=== PATIENT | female | born 1985 | race Caucasian/White ===

== ENCOUNTER 2017-08-07 17:55 | Emergency (ER) | payer MEDICAID ==
--- NOTE | 2017-08-07 18:41 | EDPHY ---
H & P Stated Complaint: sent from [facility] on M1 for paranoia and nickolas Source: Patient Exam Limitations: No limitations - Personal History Current Tetanus/Diphtheria Vaccine: Yes Tetanus Vaccine Date: 2015 - Medical/Surgical History Hx Asthma: No Hx Chronic Respiratory Disease: No Hx Diabetes: No Hx Cardiac Disease: No Hx Renal Disease: No Hx Cirrhosis: No Hx Alcoholism: No Hx HIV/AIDS: No Hx Splenectomy or Spleen Trauma: No Other PMH: anxiety, ADHD - Social History Smoking Status: Heavy smoker Time Seen by Provider: 08/07/17 18:39 HPI/ROS: CHIEF COMPLAINT: From [facility] on M1 psychiatric hold HISTORY OF PRESENT ILLNESS: The patient is referred to the emergency department from [facility] on an M1 psychiatric hold. The patient tells me she was there today to discuss marriage counseling. She reportedly reported symptoms of anxiety and depression surrounding problems with her . For reasons not entirely clear, the patient was placed on an M1 psychiatric hold. She denies making suicidal statements. She denies past medical history. She does have a remote history of attention deficit hyperactivity disorder and anxiety. The patient does report she uses marijuana occasionally. She reports she has a few alcoholic beverages a week. REVIEW OF SYSTEMS: A comprehensive 10 point review of systems is otherwise negative aside from elements mentioned in the history of present illness. (Patricio White) - Physical Exam Exam: General Appearance: Alert, no distress Eyes: Pupils equal and round no pallor or injection ENT, Mouth: Mucous membranes moist Respiratory: There are no retractions, lungs are clear to auscultation Cardiovascular: Regular rate and rhythm Gastrointestinal: Abdomen is soft and nontender, no masses, bowel sounds normal Neurological: A&O, normal motor function, normal sensory exam, normal cranial nerves Skin: Warm and dry, no rashes Musculoskeletal: Neck is supple nontender Extremities: symmetrical, full range of motion Psychiatric: Cooperative, denies symptoms of suicidal or homicidal ideation, endorses anxiety, appropriate thought content, thought process is linear, speech fluent and logical (Patricio White) Constitutional: Initial Vital Signs Temperature (C) 36.7 C 08/07/17 18:02 Heart Rate 75 08/07/17 18:02 Respiratory Rate 18 08/07/17 18:02 Blood Pressure 124/80 H 08/07/17 18:02 O2 Sat (%) 95 08/07/17 18:02 O2 Delivery Mode Room Air Allergies/Adverse Reactions: Penicillins Allergy (Verified 08/07/17 18:02) tramadol Allergy (Verified 07/21/15 08:36) Home Medications: Medication Instructions Recorded NK [No Known Home Meds] 08/07/17 Medical Decision Making ED Course/Re-evaluation: The patient presents to the ED on an M1 psychiatric hold for [facility]. The patient was medically cleared for psychiatric evaluation. She was seen by [facility] who would like to admit the patient for further inpatient psychiatric care. Disposition is currently pending. The patient did receive 1 mg of oral Ativan. She currently is tasneem for safety. The patient will be turned over to Dr. Benítez at shift change pending psychiatric placement. (Patricio White) 1250AM: This patient has been accepted at [facility] by Dr. Alvarado. Appropriate transfer paperwork has been filled out. EMTALA Filled out. (Trever Benítez) Differential Diagnosis: Differential diagnosis considered includes depression, suicidal ideation, psychosis, anxiety (Patricio White) - Data Points Laboratory Results: Laboratory Results 08/07/17 18:30 08/07/17 18:30 08/07/17 08/07/17 08/07/17 18:30 18:30 18:30 WBC RBC Hgb Hct MCV MCH MCHC RDW Plt Count MPV Neut % (Auto) Lymph % (Auto) Mcintosh % (Auto) Eos % (Auto) Baso % (Auto) Nucleat RBC Rel Count Absolute Neuts (auto) Absolute Lymphs (auto) Absolute Monos (auto) Absolute Eos (auto) Absolute Basos (auto) Absolute Nucleated RBC Immature Gran % Immature Gran # Sodium 139 mEq/L mEq/L (134-144) Potassium 3.8 mEq/L mEq/L (3.5-5.2) Chloride 105 mEq/L mEq/L (97-110) Carbon Dioxide 24 mEq/l mEq/l (22-31) Anion Gap 10 mEq/L mEq/L (8-16) BUN 11 mg/dL mg/dL (7-23) Creatinine 0.7 mg/dL mg/dL (0.6-1.0) Estimated GFR > 60 Glucose 83 mg/dL mg/dL (70-100) Calcium 10.1 mg/dL mg/dL (8.5-10.4) Beta HCG, Qual NEGATIVE Urine Opiates Screen NEGATIVE (NEGATIVE) Urine Barbiturates NEGATIVE (NEGATIVE) Ur Phencyclidine Scrn NEGATIVE (NEGATIVE) Ur Amphetamine Screen NEGATIVE (NEGATIVE) U Benzodiazepines Scrn NEGATIVE (NEGATIVE) Urine Cocaine Screen NEGATIVE (NEGATIVE) U Marijuana (THC) Screen NON-NEGATIVE H (NEGATIVE) Ethyl Alcohol < 10 mg/dL mg/dL (0-10) 08/07/17 18:30 WBC 10.99 10^3/uL H 10^3/uL (3.80-9.50) RBC 4.18 10^6/uL 10^6/uL (4.18-5.33) Hgb 13.4 g/dL g/dL (12.6-16.3) Hct 39.7 % % (38.0-47.0) MCV 95.0 fL fL (81.5-99.8) MCH 32.1 pg pg (27.9-34.1) MCHC 33.8 g/dL g/dL (32.4-36.7) RDW 13.6 % % (11.5-15.2) Plt Count 240 10^3/uL 10^3/uL (150-400) MPV 11.6 fL fL (8.7-11.7) Neut % (Auto) 54.7 % % (39.3-74.2) Lymph % (Auto) 34.8 % % (15.0-45.0) Mcintosh % (Auto) 5.6 % % (4.5-13.0) Eos % (Auto) 4.4 % % (0.6-7.6) Baso % (Auto) 0.4 % % (0.3-1.7) Nucleat RBC Rel Count 0.0 % % (0.0-0.2) Absolute Neuts (auto) 6.02 10^3/uL 10^3/uL (1.70-6.50) Absolute Lymphs (auto) 3.82 10^3/uL H 10^3/uL (1.00-3.00) Absolute Monos (auto) 0.62 10^3/uL 10^3/uL (0.30-0.80) Absolute Eos (auto) 0.48 10^3/uL H 10^3/uL (0.03-0.40) Absolute Basos (auto) 0.04 10^3/uL 10^3/uL (0.02-0.10) Absolute Nucleated RBC 0.00 10^3/uL 10^3/uL (0-0.01) Immature Gran % 0.1 % % (0.0-1.1) Immature Gran # 0.01 10^3/uL 10^3/uL (0.00-0.10) Sodium Potassium Chloride Carbon Dioxide Anion Gap BUN Creatinine Estimated GFR Glucose Calcium Beta HCG, Qual Urine Opiates Screen Urine Barbiturates Ur Phencyclidine Scrn Ur Amphetamine Screen U Benzodiazepines Scrn Urine Cocaine Screen U Marijuana (THC) Screen Ethyl Alcohol Medications Given: Discontinued Medications Lorazepam (Ativan) 1 mg PO EDNOW ONE Stop: 08/07/17 18:55 Last Admin: 08/07/17 19:15 Dose: 1 mg Nicotine (Nicoderm Cq) 21 mg TD EDNOW ONE Stop: 08/07/17 18:54 Last Admin: 08/07/17 19:15 Dose: 21 mg Departure - Departure Disposition: Acute Care Hospital Count includes the [facility] Clinical Impression: Anxiety Condition: Good Referrals: NONE *PRIMARY CARE P,. [Primary Care Provider] - As per Instructions
[2017-08-07 18:45] LABS: % IMMATURE GRANULYOCYTES 0.1 % (0.0-1.1); ABSOLUTE IMMATURE GRANULOCYTES 0.01 10^3/uL (0.00-0.10); ADD DIFF? NO; ADD MORPH? NO; ADD SCAN? NO; ATYPICAL LYMPHOCYTE FLAG 20 (0-99); FRAGMENT RBC FLAG 0 (0-99); HEMATOCRIT 39.7 % (38.0-47.0); HEMOGLOBIN 13.4 g/dL (12.6-16.3); LEFT SHIFT FLG 0 (0-99); LIPEMIA HEMOLYSIS FLAG 90 (0-99); MEAN CELL HEMOGLOBIN 32.1 pg (27.9-34.1); MEAN CELL HEMOGLOBIN CONCENTR. 33.8 g/dL (32.4-36.7); MEAN PLATELET VOLUME 11.6 fL (8.7-11.7); PLATELET CLUMPS FLAG 0 (0-99); PLATELET COUNT 240 10^3/uL (150-400); RED BLOOD CELL COUNT 4.18 10^6/uL (4.18-5.33); RED CELL DISTRIBUTION WIDTH 13.6 % (11.5-15.2)
[2017-08-07 18:52] LABS: ANION GAP 10 mEq/L (8-16); CALCIUM 10.1 mg/dL (8.5-10.4); CARBON DIOXIDE 24 mEq/l (22-31); CHLORIDE 105 mEq/L (97-110); CREATININE 0.7 mg/dL (0.6-1.0); ETHANOL SERUM < 10 mg/dL (0-10); GLOMERULAR FILTRATION RATE > 60; GLUCOSE 83 mg/dL (70-100); POTASSIUM 3.8 mEq/L (3.5-5.2); SODIUM 139 mEq/L (134-144)
[2017-08-07] MEDS: LORazepam 1 MG TAB PO ONE (19:15)
[2017-08-07] MEDS: NICOTINE 21 MG/24 HR PATCH TD ONE (19:15)
[2017-08-08 00:05] VITALS: TEMP 97.9; O2SAT 96
[2017-08-08 01:33] VITALS: BP 116/69; PULSE 74; RESP 13
== END 2017-08-08 01:15 | disposition short-term general hospital (02) ==
LOC: EDUNIT#
DX: F41.9 Anxiety disorder, unspecified (principal); F17.200 Nicotine dependence, unspecified, uncomplicated
CPT/HCPCS: 80305; G0480